=== PATIENT | male | born 1995 | race Hispanic/Latino ===

== ENCOUNTER 2018-02-16 09:12 | Emergency (ER) | payer BC ==
[2018-02-16] MEDS ORDERED: Acetaminophen 500 MG TAB ONE (09:37)
[2018-02-16 09:52] LABS: ALT (SGPT) 96 U/L (8-55); AST (SGOT) 27 U/L (5-34); Albumin 4.5 g/dL (3.5-5.0); Alcohol Less than 10 mg/dL (Less than 10); Alkaline Phosphatase 68 U/L (40-150); Anion Gap 12 mmol/L (10-20); BUN (Urea Nitrogen) 8 mg/dL (8.9-20.6); Calc. Creatinine Clearance 0 mL/min (70-130); Calcium 9.2 mg/dL (7.8-10.44); Carbon Dioxide 24 mmol/L (22-29); Chloride 105 mmol/L (98-107); Estimated GFR-MDRD Greater than 90; Globulin 2.6 g/dL (2.4-3.5); Glucose 86 mg/dL (70-105); Potassium 3.3 mmol/L (3.5-5.1); Protein, Total 7.1 g/dL (6.0-8.3); Sodium 138 mmol/L (136-145)
[2018-02-16 09:52] LABS: Bilirubin Negative (Negative); Blood, Urine Negative (Negative); Clarity CLEAR (Clear); Glucose, Urine (Dipstick) Negative (Negative); Leukocyte Negative (Negative); Nitrite Negative (Negative); Protein, Urine (Dipstick) Negative (Neg-Trace); Specific Gravity, Urine 1.017 (1.002-1.036)
[2018-02-16 09:56] LABS: CKMB 1.2 ng/mL (0-6.6); Troponin I Less than 0.010 ng/mL (< 0.028)
[2018-02-16 10:05] LABS: #Lymphocytes 1.6 thou/uL (1.20-3.40); #Monocytes 0.4 thou/uL (0.11-0.59); #Neutrophils 3.6 thou/uL (1.40-6.50); %Basophils 0.5 % (0.0-1.0); %Eosinophils 0.6 % (0.0-10.0); %Lymphocytes 28.8 % (21.0-51.0); %Monocytes 7.3 % (0.0-10.0); %Neutrophils 62.9 % (42.0-75.0); Hemoglobin 16.8 g/dL (14.0-18.0); Mean Corpuscular HGB CONC 33.9 g/dL (32.0-36.0); Mean Corpuscular Hemoglobin 30.5 pg (27.0-31.0); Mean Corpuscular Volume 90.1 fL (78.0-98.0); Mean Platelet Volume 7.1 fL (7.4-10.4); Platelet Count 181 thou/uL (130-400); RBC Distribution Width 11.1 % (11.5-14.5); White Blood Cell (WBC) Count 5.7 thou/uL (4.8-10.8)
--- NOTE | 2018-02-16 11:17 | RAD ---
RADIOGRAPH CHEST SINGLE VIEW: Comparison: None. History: Syncope. FINDINGS: No consolidation, effusion, or discrete pneumothorax. The cardiac silhouette is accentuated by portab le technique. There are leads overlying the chest limiting detail. IMPRESSION: No focal consolidation. POS: [facility]
--- NOTE | 2018-02-16 11:19 | CT ---
NONCONTRAST CT HEAD: DATE: 02/16/18. HISTORY: Syncope and headache. FINDINGS: There is no evidence of a hemorrhage, acute infarction, mass effect, or midline shift. The ventricul ar system is normal in size, shape, and position. Visualized paranasal sinuses and mastoid air cells are clear. Calvarial structures are intact. IMPRESSION: No acute intracranial abnormality is demonstrated. POS: [facility]
== END 2018-02-16 10:57 | disposition home or self-care (01) ==
LOC: ERS 09:12
DX: R55 Syncope and collapse (principal); E86.0 Dehydration
CPT/HCPCS: 70450; 71045; 80053; 80307; 81003; 82553; 84484; 85025; 93005; 94760; 96360

== ENCOUNTER 2019-06-30 12:19 | Emergency (ER) | payer BC, SELFPAY ==
[2019-06-30] MEDS ORDERED: Azithromycin 250 MG TAB ONE (12:59)
[2019-06-30] MEDS ORDERED: Lidocaine 1% PF 5 ML VIAL ONE (12:59)
[2019-06-30] MEDS ORDERED: cefTRIAXone\\ROCEPHIN 250 MG VIAL ONE (12:59)
[2019-06-30 13:19] LABS: Bacteria/HPF None Seen HPF (None Seen); Bilirubin Negative (Negative); Blood, Urine Negative (Negative); Clarity Clear (Clear); Glucose, Urine (Dipstick) Normal (Negative); Leukocyte 500 Leu/uL (Negative); Nitrite Negative (Negative); Protein, Urine (Dipstick) Negative (Neg-Trace); RBC/HPF 0-3 HPF (0-3); Squamous Epithelial 0-3 HPF (0-3); Urobilinogen Normal mg/dL (Less than 2); WBC/HPF Greater than 50 HPF (0-3)
== END 2019-06-30 13:33 | disposition home or self-care (01) ==
LOC: ERS 12:19
DX: Z20.2 Contact with and (suspected) exposure to infections with a predominantly sexual mode of transmission (principal)
CPT/HCPCS: 81003; 81015; 96372; 99283; J0696; J2001

== ENCOUNTER 2020-05-11 13:27 | Emergency (ER) | payer SELFPAY ==
[2020-05-11] MEDS ORDERED: Ketorolac Tromethamine 30 MG/ML VIAL ONE (14:36)
[2020-05-11] MEDS ORDERED: Ondansetron PF 4 MG/2 ML Vial ONE (14:36)
[2020-05-11 14:39] LABS: #Lymphocytes 1.9 thou/uL (1.20-3.40); #Monocytes 0.8 thou/uL (0.11-0.59); #Neutrophils 3.6 thou/uL (1.40-6.50); %Basophils 0.2 % (0.0-1.0); %Eosinophils 0.7 % (0.0-10.0); %Lymphocytes 29.5 % (21.0-51.0); %Monocytes 12.2 % (0.0-10.0); %Neutrophils 57.3 % (42.0-75.0); Hemoglobin 17.8 g/dL (14.0-18.0); Mean Corpuscular HGB CONC 34.3 g/dL (32.0-36.0); Mean Corpuscular Hemoglobin 30.7 pg (27.0-31.0); Mean Corpuscular Volume 89.6 fL (78.0-98.0); Platelet Count 202 thou/uL (130-400); Red Blood Cell (RBC) Count 5.78 mill/uL (4.70-6.10); White Blood Cell (WBC) Count 6.4 thou/uL (4.8-10.8)
[2020-05-11 14:56] LABS: ALT (SGPT) 56 U/L (8-55); AST (SGOT) 39 U/L (5-34); Alkaline Phosphatase 64 U/L (40-110); Anion Gap 11 mmol/L (10-20); BUN (Urea Nitrogen) 6 mg/dL (8.9-20.6); Bilirubin, Total 0.6 mg/dL (0.2-1.2); Calc. Creatinine Clearance 0 mL/min (70-130); Calcium 8.7 mg/dL (7.8-10.44); Carbon Dioxide 30 mmol/L (22-29); Chloride 101 mmol/L (98-107); Estimated GFR-MDRD Greater than 90; Glucose 95 mg/dL (70-105); Lipase 34 U/L (8-78); Sodium 138 mmol/L (136-145)
[2020-05-11 14:56] LABS: Bilirubin Negative (Negative); Blood, Urine Negative (Negative); Clarity Clear (Clear); Glucose, Urine (Dipstick) Normal (Negative); Ketone, Urine Negative (Negative); Leukocyte Negative Leu/uL (Negative); Nitrite Negative (Negative); Protein, Urine (Dipstick) Negative (Neg-Trace); Specific Gravity, Urine 1.009 (1.002-1.036); Urobilinogen Normal mg/dL (Less than 2)
== END 2020-05-11 16:13 | disposition home or self-care (01) ==
LOC: ERS 13:27
DX: R10.13 Epigastric pain (principal); R11.2 Nausea with vomiting, unspecified; Z79.899 Other long term (current) drug therapy
CPT/HCPCS: 36415; 80053; 81003; 83690; 85025; 96361; 96374; 96375; J1885; J2405

== ENCOUNTER 2021-01-23 21:23 | Emergency (ER) | payer BC, SELFPAY ==
[2021-01-23] MEDS ORDERED: diphenhydrAMINE 25 MG CAP ONE (23:40)
[2021-01-23] MEDS ORDERED: Ibuprofen 800 MG TAB ONE (23:40)
== END 2021-01-24 00:12 | disposition home or self-care (01) ==
LOC: ERS 21:23
DX: L30.9 Dermatitis, unspecified (principal)
CPT/HCPCS: 99282; Q0163

== ENCOUNTER 2022-07-08 10:07 | Emergency (ER) | payer BC ==
[2022-07-08] MEDS ORDERED: Lidocaine 1% PF 5 ML VIAL ONE (12:01)
[2022-07-08] MEDS ORDERED: cefTRIAXone\\ROCEPHIN 500 MG VIAL ONE (12:01)
[2022-07-08] MEDS ORDERED: Lidocaine 1% MPF 2 ML VIAL ONE (12:02)
[2022-07-08 12:34] LABS: Bilirubin Negative (Negative); Blood, Urine Negative (Negative); Clarity Clear (Clear); Glucose, Urine (Dipstick) Normal (Negative); Ketone, Urine Negative (Negative); Leukocyte 250 Leu/uL (Negative); Nitrite Negative (Negative); Protein, Urine (Dipstick) 10 mg/dL (Neg-Trace); RBC/HPF 0-3 HPF (0-3); Specific Gravity, Urine 1.029 (1.002-1.036); Squamous Epithelial None Seen HPF (0-3); Urobilinogen Normal mg/dL (Less than 2); WBC/HPF 21-50 HPF (0-3)
[2022-07-08 12:36] LABS: Bacteria/HPF Rare-Few HPF (None Seen)
[2022-07-08 19:41] LABS: Chlam.trachomatis by PCR,Urine Not Detected (NotDetected)
== END 2022-07-08 12:30 | disposition home or self-care (01) ==
LOC: ERS 10:07
DX: R30.0 Dysuria (principal)
CPT/HCPCS: 81003; 81015; 87491; 87591; 96372; 99283; J0696